=== PATIENT | female | born 1960 | race Caucasian/White ===

== ENCOUNTER → 2022-01-26 | Outpatient (CLI) | payer OTHER ==
[~2022-01-26] MED LIST: ALLEGRA180 MG PO; CALCIUM PO; CELEXA PO; CYMBALTA PO; FISH OIL500 M1 PO; FISHOIL PO; FLEXERIL PO; LISINOPRIL10 MG; MOBIC7.5 MG PO; MULTIPLE VITAM1 EAC1 PO; MULTIVITAMINS PO; NORCO 5-325 TA1 EACH PO; REQUIP 1 MG TABL1 M1 PO; SINGULAIR PO; STEROID NASAL SPRAY IH; SYNTHROID50 MCG; WELLBUTRIN 75 M75 M1
== END ==
LOC: M.LAB 07:44
PROVIDERS: ATTEND Internal Medicine Gastroenterology
DX: Z01.812 Encounter for preprocedural laboratory examination (principal); Z20.822 Contact with and (suspected) exposure to COVID-19